=== PATIENT | female | born 1970 | race Two or more races ===

== ENCOUNTER 2018-03-17 20:37 | Emergency (ER) | payer BC, OTHER ==
[~2018-03-17] VITALS: Ht 152.4 cm; Wt 79.4 kg
[2018-03-17] MEDS ORDERED: ENAL1TAB10 PO (21:27)
--- NOTE | 2018-03-17 21:55 | NUR ---
DR LATRICE FAJARDO MD AT BEDSIDE FOR MSE.
--- NOTE | 2018-03-17 22:15 | NUR ---
US AT PT BEDSIDE.
[2018-03-17 23:15] LABS: *BILIRUBIN,URIN NEGATIVE (NEGATIVE); *BLOOD, URINE 1+ (NEGATIVE); *CLARITY,URINE CLEAR (CLEAR); *COLOR,URINE LIGHT YELLOW (YELLOW); *KETONES,URINE NEGATIVE (NEGATIVE); *PROTEIN,URINE NEGATIVE (NEGATIVE); *UROBILINOGEN,URINE 0.2 E.U./dl (NORMAL); LEUKOCYTE ESTERASE ,URINE NEGATIVE (NEGATIVE); NITRITE, URINE NEGATIVE (NEGATIVE); UGLUCOSE NEGATIVE (NEGATIVE)
[2018-03-17 23:27] LABS: *URINE HCG, QUAL NEGATIVE (NEGATIVE); BACTERIA,URINE FEW /HPF (NONE SEEN); SQUAMOUS EPITHELIAL CELL,UR MODERATE /HPF (NONE SEEN); WBC,URINE 0-3 /HPF (0-3)
--- NOTE | 2018-03-18 00:17 | NUR ---
Patient discharged to home in stable conditon. Work excuse provided. Written and verbal after care instructions given. Patient verbalizes understanding of instructions. Pt accompanied by daughter. No distress noted. Pt took all personal belongings.
[2018-03-18 00:19] VITALS: BP 122/70
== END 2018-03-18 00:20 | disposition home or self-care (01) ==
LOC: ER 20:39
DX: K57.32 Diverticulitis of large intestine without perforation or abscess without bleeding (principal); K42.9 Umbilical hernia without obstruction or gangrene; I10 Essential (primary) hypertension
CPT/HCPCS: 74176; 76856; 81001; 84703; 99285; A4663